=== PATIENT | male | born 2000 | race Caucasian/White ===

== ENCOUNTER 2018-07-17 16:29 | Inpatient (IN) | payer OTHER ==
[~2018-07-17] VITALS: Ht 180.3 cm; Wt 81.6 kg
--- NOTE | 2018-07-17 17:47 | NUR ---
Preadmission Note Pt is a 18 y/o male being admitted to [facility] for ETOH withdrawals. Pt reports drinking about 2-3 40 ounces of beer daily on the weekdays and 750ml of [place] (bourbon) daily on the weekends, Pt states that it has been a daily thing for the past 8 months. Pt appears worried and anxious. Pt stated that he last drank on the plane around 3pm. initial vitals as followed BP:128/77mmHg Pulse: 89 RR:18 Temp 98.4 pt denies any pain. Pt denies having any PMH, pt did not bring any home medications, pt stated that his longest period of sobriety was 2 weeks which was 5-6 months ago. pt has not been to any previous treatments prior to this one. will continue to monitor.
[2018-07-17 17:49] LABS: *AMPHETAMINE, URINE NEGATIVE (NEGATIVE); *BARBITURATE, URINE NEGATIVE (NEGATIVE); *CANNABINOID, URINE POSITIVE (NEGATIVE); *COCCAINE, URINE POSITIVE (NEGATIVE); *OPIATE, URINE NEGATIVE (NEGATIVE); *PHENCYCLIDINE SCREEN,URINE NEGATIVE (NEGATIVE)
[2018-07-17] MEDS ORDERED: MAGNESIUM HYDROXIDE 30 ML LIQUID UDC PO PRN (18:15)
[2018-07-17] MEDS ORDERED: diphenhydrAMINE 50 MG CAPSULE PO PRN (18:15)
[2018-07-17] MEDS ORDERED: ONDANSETRON 4 MG/2 ML VIAL IM PRN (18:15)
[2018-07-17] MEDS ORDERED: ONDANSETRON ODT 4 MG TAB.RAPDIS SL PRN (18:15)
[2018-07-17] MEDS ORDERED: THIAMINE HCL 200 MG/2 ML VIAL IM ONE (18:15)
[2018-07-17] MEDS ORDERED: CLONIDINE HCL 0.1 MG TABLET PO PRN (18:15)
[2018-07-17] MEDS ORDERED: HYDROXYZINE PAMOATE 25 MG CAPSULE PO PRN (18:15)
[2018-07-17] MEDS ORDERED: LOPERAMIDE HCL 2 MG CAPSULE PO PRN ×2 (18:15)
[2018-07-17] MEDS ORDERED: LORAZEPAM 1 MG TABLET PO PRN ×2 (18:15)
[2018-07-17] MEDS ORDERED: LORAZEPAM 2 MG/1 ML VIAL IM PRN (18:15)
[2018-07-17 18:23] LABS: BASOPHILS # (AUTO) 0.1 K/uL (0.0-8.0); BASOPHILS % (AUTO) 0.6 % (0.0-2.0); EOSINOPHILS # (AUTO) 0.2 K/uL (0.0-0.7); EOSINOPHILS % (AUTO) 1.4 % (0.0-7.0); HEMATOCRIT 43.9 % (36.7-47.1); HEMOGLOBIN 15.2 g/dL (12.5-16.3); LYMPHOCYTES # (AUTO) 4.4 K/uL (20.0-40.0); LYMPHOCYTES % (AUTO) 32.1 % (20.5-74.5); MEAN CORPUSCULAR HEMOGLOBIN 31.7 uug (23.8-33.4); MEAN CORPUSCULAR HGB CONC 35 g/dL (32.5-36.3); MEAN CORPUSCULAR VOLUME 91.6 fL (73.0-96.2); MONOCYTES # (AUTO) 1.1 K/uL (2.0-10.0); MONOCYTES % (AUTO) 8.3 % (0-11); NEUTROPHILS # (AUTO) 7.8 K/uL (1.8-8.9); NEUTROPHILS % (AUTO) 57.6 % (31.5-64.5); PLATELET COUNT (AUTO) 327 K/uL (152-348); RED BLOOD CELL COUNT(AUTO) 4.79 MIL/uL (4.06-5.63); WHITE BLOOD COUNT (AUTO) 13.6 K/uL (3.6-10.2)
--- NOTE | 2018-07-17 18:49 | NUR ---
Admission note Pt is a 18 y/o male being admitted to [facility] for ETOH withdrawals. Pt appears to be nervous and worried, he is well groomed a good historian and is mildly intoxicated. Pt is 5"11 and weighs 180lb. Pt reports drinking about 2-3 40oz of beer daily on the weekdays and 750ml of [place] (bourbon) daily on the weekends, Pt states that it has been a daily thing for the past 8 months. Pt appears worried and anxious. Pt stated that he last drank on the plane around 3pm. initial vitals as followed BP:128/77mmHg Pulse: 89 RR:18 Temp 98.4 pt denies any pain. Pt denies having any PMH, pt did not bring any home medications, pt stated that his longest period of sobriety was 2 weeks which was 5-6 months ago. pt has not been to any previous treatments prior to this one. 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 When asked what his triggers are to drink pt states "Stress, My family has a long history of abuse, my mother was a heroin addict, my grandparents drank a lot" Pt states that his father was never around and often his drinking is due to his father returning after years of not contacting him and trying to be there for him "He did care about us then we dont need him now" Pt states that he gets very agitated when he does not drink and that everything begins to irritate him. "I get mad at little things with my family and when I drink I start to think and realize that I should have been more in control and not get upset over little things". Pt states that he smokes about a pack of cigarettes a day. Pts initial CIWA score was a 9, Pts skin is intact with no s/s of any bruising or wounds noted. When asked why he decided to get sober he stated that he is doing it for his little sisters " I want to show them that there is still hope for me and for them, I want to be a better influence to them than my parents were to me, I'm doing this for them as much as I'm doing it for me". When asked what caused him to relapse in the past pt stated that his friends and family stressors were the main influences. "I would have a rough day get into an argument with my mother or my father would return again, I would leave the house and go hang out with my friends, one thing lead to another and before I knew it we were drinking" pt states that drinking allows him to forget about all of his problems " It puts all my problems in the back of my head where I dont think about them or worry at all and that feeling is something I really need in those situations". Some of the consequences that pt had to deal with due to drinking is having his sulky driver's license taken away from him "I didnt get a DUI but when they caught me drinking underage so many times they took away my driving license" Pt has to go through many classes and rehabs before they will even consider giving him back his license. Pt stated that he has never tried to his full potential to stop drinking , when asked what will be different about this time pt stated "The fact that I'm here, I never been to any detox but I feel as if I really want to move forward with my life I need to seek help" Substance use history: ETOH ([place])- Pt stated that he first drank when he was 13 years old, currently pt drinks about 2-3 40oz of beer daily on the weekdays and 750ml of [place] (bourbon) daily on the weekends, Pt states that it has been a daily thing for the past 8 months. His last time drinking was on the plane over here pt states he drank about 2 cups of [place] on the plane. Treatment history Pt denies any treatment history this is his first time in a detox. All information shared with Primary MD plan of care started pt is placed on a 5 day Ativan taper, Educated pt with unit rules and oriented pt around the unit. Encouraged pt to increase fluids as tolerated to help with detox process. Pt verbalized understanding . Safety measures in place call light within reach will continue to monitor.
[2018-07-17 18:50] LABS: ALANINE AMINOTRANSFERASE 22 U/L (16-63); ALKALINE PHOSPHATASE 98 U/L (50-136); AMYLASE 54 U/L (25-115); ASPARTATE AMINOTRANSFERASE 14 U/L (15-37); BILIRUBIN,TOTAL 0.5 mg/dL (0.2-1.0); CARBON DIOXIDE 26 mmol/L (21-32); CHLORIDE 104 mmol/L (98-107); CREATININE 0.9 mg/dL (0.6-1.3); GLUCOSE 88 mg/dL (74-106); LIPASE 121 U/L (73-393); MAGNESIUM 2.1 mg/dL (1.8-2.4); POTASSIUM 3.5 mmol/L (3.5-5.1); TOTAL PROTEIN, SERUM 7.8 g/dL (6.4-8.2); UREA NITROGEN, BLOOD 7 mg/dL (7-18)
[2018-07-17 18:59] LABS: ETHANOL < 3 MG/DL (0-0)
--- NOTE | 2018-07-17 19:14 | NUR ---
Start of shift note Received report from day shift nurse. Pt is a 18 yo male, A+Ox4, presenting to [facility] for medically supervised ETOH withdrawal. Pt noted with fatigues, anxiety, and agitation. Pt has HX of depression and anxiety which will be monitored during shift. Pt is on PRN medications and on 5 day Ativan taper to start tomorrow. Respirations even and unlabored. Will continue to monitor.
[2018-07-17 19:16] LABS: THYROID STIMULATING HORMONE 3.884 mIU/mL (0.358-3.740)
--- NOTE | 2018-07-17 20:14 | NUR ---
CIWA Assessment CIWA: 6. Pt noted with fine tremors, sweat on brow, anxiety, and agitation. Respirations even and unlabored. Will continue to monitor.
[2018-07-17 20:26] VITALS: BP 125/56
--- NOTE | 2018-07-18 00:48 | NUR ---
V/S refused and CIWA Assessment deferred for sleep. Respirations even and unlabored. Will continue to monitor.
--- NOTE | 2018-07-18 04:09 | NUR ---
V/S refused and CIWA Assessment deferred for sleep. Respirations even and unlabored. Will continue to monitor.
--- NOTE | 2018-07-18 07:00 | NUR ---
End of shift note Pt was continuously noted with fatigue, agitation, and anxiety. Pt remained in room for entire shift. Pt remained compliant and cooperative with all aspects of treatment. Pt was not given any PRN medications during shift. Pt is on 5 day Ativan taper to start today. Pt slept for a total of 9 HRS. Last CIWA: 6 @2013. Respirations even and unlabored. Will endorse to day shift nurse.
[2018-07-18 08:00] VITALS: BP 126/70
--- NOTE | 2018-07-18 08:00 | NUR ---
Start of Shift Notes: Patient endorsement received from night nurse. Patient is a 18 year old male admitted during the night for ETOH withdrawal who was placed on a 5-day Ativan taper as ordered. Patient's taper will be starting today. This is patient's first time in treatment. Last CIWA 6 and slept for a total of 9 hours. Received patient in his room, sitting on the chair. He is noted to be restless on BLE, sweaty palms, worried facial expression, appears disheveled, and complains of high anxiety. He is alert and oriented x 4. Denies S/I or H/I noted. No AV hallucinations noted. He is noted with visible tremors to BUE. Complains of abdominal cramping, hot flashes, nausea and migraine headache of 6/10. CIWA 25 upon assessment. Educated patient on his current plan of care for the day and his medication regimen. Patient appears overly worried on the s/s of withdrawal and requires further education on the s/s of ETOH withdrawal. Encouraged patient to increase oral fluid intake and encouraged participation during group to learn new skills to prevent relapse. All needs met and attended. Will continue to monitor closely.
[2018-07-18] MEDS: MULTIVITAMINS,THERAPEUTIC TABLET PO SCH (08:38)
[2018-07-18] MEDS: FOLIC ACID 1 MG TABLET PO SCH (08:38)
[2018-07-18] MEDS: DICYCLOMINE HCL 20 MG TABLET PO PRN (08:38)
[2018-07-18] MEDS: LORAZEPAM 1 MG TABLET PO SCH ×4 (08:38→20:33)
[2018-07-18] MEDS: THIAMINE HCL 100 MG TABLET PO SCH (08:38)
[2018-07-18] MEDS: IBUPROFEN 600 MG TABLET PO PRN (08:38)
--- NOTE | 2018-07-18 08:38 | NUR ---
Motrin 600 mg/Clonidine 0.1mg/Bentyl 20 mg/Zofran 4 mg SL given: Patient complains of 6/10 migraine headache, nausea, abdominal cramping, anxiety, and hot flashes. Patient with facial flushing noted. Medicated patient with Motrin 600 mg PO, Clonidine 0.1mg PO, Bentyl 20 mg and Zofran 4 mg SL as ordered. Will monitor for effectiveness.
[2018-07-18] MEDS ORDERED: 3 DAY TAPER OF LORAZEPAM -SERENITY PROTOCOL PO PRN (09:00)
[2018-07-18] MEDS ORDERED: TUBERCULIN,PURIF.PROT.DERIV. 5 TU/0.1 ML TEST ID ONE (09:00)
--- NOTE | 2018-07-18 09:38 | NUR ---
Re-assessment: Motrin, ClonidineHeather Zofran Patient verbalized that his migraine headache is now a 3/10, relief noted from nausea, abdominal cramping and less anxiety noted. Rest and relaxation encouraged. PRNs were effective.
--- NOTE | 2018-07-18 11:22 | NUR ---
UDS Result: Patient's UDS result also returned (+) for cocaine. Upon patient interview, patient reported using 1/2 gram of cocaine QD 5x/wk x [address] Singleton. Last use was on 07/17/2018, 1/2 gram.
[2018-07-18 12:00] VITALS: BP 113/60
--- NOTE | 2018-07-18 12:00 | NUR ---
CIWA Assessment: CIWA 20, patient continues to present with s/s of withdrawal m/b diaphoresis, facial flushing, nausea, gross tremors, anxiety, difficulty concentrating, fatigue, body aches, malaise, fatigue, anhedonia and excessive worrying. Will medicate patient as ordered per tapered order and provide support. Will continue to monitor closely.
--- NOTE | 2018-07-18 12:20 | NUR ---
Therapist prompted client to attend group therapy.
[2018-07-18] MEDS: METHOCARBAMOL 750 MG TABLET PO PRN (12:30)
--- NOTE | 2018-07-18 12:30 | NUR ---
Robaxin 750 mg PO given: Patient complained of 6/10 body aches. Orders obtained for Robaxin 750 mg PO. Medicated patient with Robaxin 750 mg PO as ordered. Non-pharmacological interventions provided but ineffective. Medicated patient with Robaxin 750 mg PO as ordered. Will monitor for effectiveness.
--- NOTE | 2018-07-18 13:30 | NUR ---
Re-assessment: Robaxin Patient verbalizes that his PL is now a 3/10. Rest encouraged. PRN Robaxin effective.
[2018-07-18 16:00] VITALS: BP 120/87
--- NOTE | 2018-07-18 16:12 | NUR ---
CIWA Assessment: CIWA 14, patient continues to present with s/s of ETOH withdrawal m/b anxiety, agitation, fatigue, restlessness, facial flushing, gross tremors, and diaphoresis and feeling of hot and cold as well as generalized discomfort. Will continue to medicate patient as ordered. Unable to participate in group and activities.
--- NOTE | 2018-07-18 19:12 | NUR ---
End of Shift Notes: Patient continues to be on 5-day Ativan taper as ordered. No adverse reactions noted. This is patients first day of taper. VS monitored closely. No significant abnormalities noted. Withdrawal symptoms were closely monitored. Initial CIWA 25, patient continues to present with gross tremors, diaphoresis, anxiety, agitation, myalgia, paresthesia, nausea, headache, abdominal cramping, chills, malaise, fatigue and generalized discomfort. Last CIWA 14. Patient was medicated with Motrin, Clonidine, Bentyl and Zofran as ordered at 0838 and Robaxin at 1230. He verbalizes that Ativan has been effective in reducing his withdrawal symptoms. Patient requires constant redirection and education throughout the day due to fear of withdrawal symptoms and further education on the s/s of withdrawal. Unable to participate in group and activities due to his withdrawal symptoms. All needs met and attended. Will continue to monitor closely.
--- NOTE | 2018-07-18 19:14 | NUR ---
Start of shift note Received report from day shift nurse. Pt is a 18 yo male, A+Ox4, presenting to [facility] for medically supervised ETOH withdrawal. Pt was also using Cocaine. Pt noted with restlessness, agitation, anxiety, and flat affect. Pt has HX of anxiety and depression which will be monitored during shift. Pt is on 3 day Ativan taper, tolerated well. Respirations even and unlabored. Will continue to monitor.
[2018-07-18 20:12] VITALS: BP 127/77
--- NOTE | 2018-07-18 20:12 | NUR ---
CIWA Assessment CIWA: 11. Pt noted with fine tremors, sweat on brow, anxiety, agitation, and itchiness. Respirations even and unlabored. Will continue to monitor.
--- NOTE | 2018-07-19 00:55 | NUR ---
V/S refused and CIWA Assessment deferred for sleep. Respirations even and unlabored. Will continue to monitor.
--- NOTE | 2018-07-19 04:40 | NUR ---
V/S refused and CIWA Assessment deferred for sleep. Respirations even and unlabored. Will continue to monitor.
--- NOTE | 2018-07-19 07:00 | NUR ---
End of shift note Pt was continuously noted with restlessness, agitation, and anxiety. Pt remained in room for majority of shift except to go smoke on smoking patio, to attend group therapy, and to get food from kitchen. Pt remained cooperative and compliant with all aspects of treatment. Pt was not given any PRN medications during shift. Pt remains on 3 day Ativan taper, tolerated well. Pt slept for a total of 7 HRS. Last CIWA: 11 @2011. Respirations even and unlabored. Will endorse to day shift nurse.
[2018-07-19 08:00] VITALS: BP 129/67
--- NOTE | 2018-07-19 08:00 | NUR ---
Start of Shift Notes: Patient endorsement received from night nurse. Patient is a 18 year old male admitted during the night for ETOH withdrawal who was placed on a 3-day Ativan taper as ordered. Per night report, patient was given no PRNs. Last CIWA 11 and slept for a total of 7 hours. Received patient in his room, sitting on the chair. Awake, alert and oriented x 4. He is noted with flat affect, poor eye contact, sweaty palms, worried facial expression, appears disheveled, and complains of high anxiety. Denies S/I or H/I noted. No AV hallucinations noted. He is noted with visible tremors to BUE. Complains of hot flashes, nausea and migraine headache and body aches of 6/10. CIWA 15 upon assessment. Educated patient on his current plan of care for the day and his medication regimen. Patient appears overly worried on the s/s of withdrawal and requires further education on the s/s of ETOH withdrawal. Encouraged patient to increase oral fluid intake and encouraged participation during group to learn new skills to prevent relapse. All needs met and attended. Will continue to monitor closely. Addendum: 07/19/18 at 1428 by NAOMI EASON LVN Start of Shift Notes/CIWA Assessment
[2018-07-19] MEDS: THIAMINE HCL 100 MG TABLET PO SCH (08:39)
[2018-07-19] MEDS: IBUPROFEN 600 MG TABLET PO PRN (08:39)
[2018-07-19] MEDS: MULTIVITAMINS,THERAPEUTIC TABLET PO SCH (08:39)
[2018-07-19] MEDS: LORAZEPAM 1 MG TABLET PO SCH ×3 (08:39→22:35)
[2018-07-19] MEDS: FOLIC ACID 1 MG TABLET PO SCH (08:39)
[2018-07-19] MEDS: METHOCARBAMOL 750 MG TABLET PO PRN (08:43)
--- NOTE | 2018-07-19 08:43 | NUR ---
Motrin 600 mg PO/Robaxin 750 mg PO given: PRN Motrin and Robaxin given for complain of 6/10 migraine and body aches unrelieved with nonpharmacological interventions. Will monitor for effectiveness.
--- NOTE | 2018-07-19 09:43 | NUR ---
Re-assessment: Motrin and Robaxin Patient verbalizes relief from migraine headache and body aches. He reports her PL is now a 12/22. PRN Motrin and Robaxin were effective.
[2018-07-19 12:00] VITALS: BP 123/81
--- NOTE | 2018-07-19 12:01 | NUR ---
Therapist prompted client to attend group therapy.
--- NOTE | 2018-07-19 12:30 | NUR ---
CIWA Assessment: CIWA 13, patient continues to present with s/s of withdrawal related to ETOH m/b increased anxiety, agitation, gross tremors, intermittent perspiration, paresthesia, malaise, fatigue and generalized discomfort. Will medicate patient as ordered.
[2018-07-19 13:07] LABS: HEPATITIS B SURFACE AG Negative (Negative)
[2018-07-19 16:00] VITALS: BP 116/71
--- NOTE | 2018-07-19 16:13 | NUR ---
CIWA Assessment: CIWA 13, patient presents with increased anxiety, agitation, difficulty concentrating, intermittent perspiration, facial flushing, fatigue and generalized discomfort. Offered PRNs. Support provided. Will continue to monitor.
--- NOTE | 2018-07-19 19:05 | NUR ---
End of Shift Notes: Patient continues to be on 5-day Ativan taper as ordered. No adverse reactions noted. This is patients 2nd day of taper. VS monitored closely. No significant abnormalities noted. Withdrawal symptoms were closely monitored. Initial CIWA 15, patient presented with gross tremors, diaphoresis, anxiety, agitation, myalgia, , headache, chills, malaise, fatigue and generalized discomfort. Last CIWA 13. Patient was medicated with Motrin, and Robaxin at 0843 with help. He verbalizes that Ativan has been effective in reducing his withdrawal symptoms. Patient requires constant redirection and education throughout the day due to fear of withdrawal symptoms and further education on the s/s of withdrawal. He was able to participate in group and activities despite his withdrawal symptoms. All needs met and attended. Will continue to monitor closely.
--- NOTE | 2018-07-19 19:10 | NUR ---
Start of shift note Received report from day shift nurse. Pt is a 18 yo male, A+Ox4, presenting o [facility] for medically supervised ETOH withdrawal. Pt was also using Cocaine. Pt noted with restlessness, agitation, and anxiety. Pt has HX of anxiety and depression which will be monitored during shift. Pt continues on 3 day Ativan taper, tolerated well. Respirations even and unlabored. Will continue to monitor.
[2018-07-19 20:54] VITALS: BP 104/53
--- NOTE | 2018-07-19 20:55 | NUR ---
CIWA Assessment CIWA: 10. Pt noted with fine tremors, sweat on brow, anxiety, and agitation. Respirations even and unlabored. Will continue to monitor.
[2018-07-19] MEDS: TRAZODONE 50 MG TABLET PO PRN (22:41)
--- NOTE | 2018-07-19 22:41 | NUR ---
PRN Trazodone Pt c/o inability to sleep. PRN Trazodone given and tolerated well. Will reassess within 1 HR. Will continue to monitor.
--- NOTE | 2018-07-19 23:40 | NUR ---
PRN Trazodone Reassessment Medication effective. Pt is resting well in bed. No s/s of ASE noted at this time. Respirations even and unlabored. Will continue to monitor.
--- NOTE | 2018-07-20 00:55 | NUR ---
V/S refused and CIWA Assessment deferred for sleep. Respirations even and unlabored. Will continue to monitor.
--- NOTE | 2018-07-20 04:45 | NUR ---
V/S refused and CIWA Assessment deferred for sleep. Respirations even and unlabored. Will continue to monitor.
--- NOTE | 2018-07-20 06:59 | NUR ---
End of shift note Pt was continuously noted with anxiety, agitation, and restlessness. Pt remained in room for majority of shift except to get food from kitchen and to go smoke on smoking patio. Pt remained compliant and cooperative with all aspects of treatment. Pt was given PRN Trazodone @2241. Pt remains on 3 day Ativan taper, tolerated well. Pt slept for a total of 8 HRS. Last CIWA: 10 @2054. Respirations even and unlabored. Will endorse to day shift nurse.
[2018-07-20 08:00] VITALS: BP 122/70
--- NOTE | 2018-07-20 08:05 | NUR ---
START OF SHIFT: Received Pt A/O x 4. he presents with blunted affect and subdued mood. He denies S/I and H/I. He reports fatigue,and irritability and some night sweats.He is disheveled. Modified Ativan taper in progress to manage s/s of w/d. CIWA 9. Encouraged group attendance to improve coping skills and prevent relapse. Encouraged increased fluids to assist in facilitating detox process.
[2018-07-20] MEDS: FOLIC ACID 1 MG TABLET PO SCH (08:26)
[2018-07-20] MEDS: LORAZEPAM 1 MG TABLET PO SCH ×2 (08:26→20:45)
[2018-07-20] MEDS: THIAMINE HCL 100 MG TABLET PO SCH (08:26)
[2018-07-20] MEDS: MULTIVITAMINS,THERAPEUTIC TABLET PO SCH (08:27)
[2018-07-20] MEDS: DICYCLOMINE HCL 20 MG TABLET PO PRN (10:57)
[2018-07-20] MEDS: METHOCARBAMOL 750 MG TABLET PO PRN (10:57)
[2018-07-20] MEDS: IBUPROFEN 600 MG TABLET PO PRN (10:57)
--- NOTE | 2018-07-20 11:00 | NUR ---
Pt C/O L upper abdomen pain that radiates to L arm. He reports 8/10 on pain scale. PRN Motrin,Robaxin and Bentyl given to manage pain. MD made aware. MD ordered stat EKG. Will monitor effectiveness of PRN medication.
[2018-07-20 12:00] VITALS: BP 145/69
--- NOTE | 2018-07-20 12:07 | NUR ---
CIWA 9 He reports anxiety,restlessness ,irritability and fatigue.
--- NOTE | 2018-07-20 12:59 | NUR ---
PRN Linda,Pat and Bentyl effective. Pt states pain 5/10 on scale. EKG done. NSR. He states he cracked a rib on the left side a couple of weeks ago and states he thinks the pain stems from that. Will continue to monitor and offer support.
[2018-07-20] MEDS: LIDOCAINE 5% PATCH TD SCH (13:58)
[2018-07-20 16:00] VITALS: BP 132/71
[2018-07-20 16:45] LABS: BASOPHILS % (AUTO) 0.4 % (0.0-2.0); EOSINOPHILS # (AUTO) 0.1 K/uL (0.0-0.7); EOSINOPHILS % (AUTO) 1.1 % (0.0-7.0); HEMATOCRIT 44.5 % (36.7-47.1); HEMOGLOBIN 15.6 g/dL (12.5-16.3); LYMPHOCYTES # (AUTO) 3.6 K/uL (20.0-40.0); LYMPHOCYTES % (AUTO) 30.4 % (20.5-74.5); MEAN CORPUSCULAR HEMOGLOBIN 32.1 uug (23.8-33.4); MEAN CORPUSCULAR HGB CONC 35 g/dL (32.5-36.3); MEAN CORPUSCULAR VOLUME 91.6 fL (73.0-96.2); MONOCYTES % (AUTO) 8.2 % (0-11); NEUTROPHILS # (AUTO) 7.2 K/uL (1.8-8.9); NEUTROPHILS % (AUTO) 59.9 % (31.5-64.5); PLATELET COUNT (AUTO) 311 K/uL (152-348); RED BLOOD CELL COUNT(AUTO) 4.86 MIL/uL (4.06-5.63)
[2018-07-20 17:20] LABS: BILIRUBIN,TOTAL 0.4 mg/dL (0.2-1.0); CREATININE 1.1 mg/dL (0.6-1.3); POTASSIUM 4.1 mmol/L (3.5-5.1)
--- NOTE | 2018-07-20 18:47 | NUR ---
END OF SHIFT: Pt continues on Ativan taper to manage s/s of w/d which include anxiety,restlessness,fatigue and irritability. Last CIWA 8.He c/o L upper abdomen pain earlier in shift and Motrin ,Robaxin and Bentyl given PRN and effective. He reports he cracked L rib a couple of weeks ago. Lidocaine patch applied per MD. He was excused from one group today. Will pass shift report to oncoming night nurse.
[2018-07-20 20:00] VITALS: BP 116/69
--- NOTE | 2018-07-20 20:00 | NUR ---
Start of Shift Patient noted to have lack of interest in interaction and appears anxious and with flat affect. Patient verbalized "feeling tired" and with "no energy". Patient with hypoactive body movement. Patient also noted to be disheveled, is unkempt and with dirty fingernails. Last dose of the Ativan taper to be given tonight. Fall, universal, seizure and safety prec in place. Call light within reach. Latest CIWA=7. Will continue to monitor.
[2018-07-21] VITALS: BP 119/70
--- NOTE | 2018-07-21 | NUR ---
CIWA=7 Patient is intermittently anxious, continues to be disheveled and with hypoactive body movement. Patient is melancholic and with flat affect.
[2018-07-21 04:00] VITALS: BP 114/68
--- NOTE | 2018-07-21 04:00 | NUR ---
CIWA=6 Patient continues to be melancholic and isolative. Patient c/o intermittent anxiety and nausea. Refused PRN meds at this time.
--- NOTE | 2018-07-21 07:28 | NUR ---
End of Shift Patient continues to have flat affect and is isolative and avoidant with conversation. Patient noted to have hypoactive body movement, anxiety and is depressed. Encouraged patient to take a shower today as he continues to be disheveled and unkempt. Fall, universal, seizure and safety prec in place. Call light within reach. Latest CIWA=6, slept for 11 hours. Endorsed to AM shift nurse for continuity of care.
--- NOTE | 2018-07-21 07:30 | NUR ---
Start Of Shift Patient is a 18 yr old male who was admitted to [facility] on 07/17/18 for a medically supervised withdrawal from ETOH (Beer and [place]) he has completed a 3 day Ativan taper and has PRN medications available. No PRN medications were requested or required on PM shift and he slept for 7 hours and last CIWA was 6. He is awake in his room at this time and voices that he has left side rib pain due to broken ribs, PRN medication will be brought. Continue to follow MD plan of care and offer support and encouragement as needed.
[2018-07-21 08:00] VITALS: BP 135/77
--- NOTE | 2018-07-21 08:00 | NUR ---
CIWA 8 Patient presents with increased anxiety, restlessness, rib pain and irritability Motrin and Robaxin will be given for pain
[2018-07-21] MEDS: LIDOCAINE 5% PATCH TD SCH (08:15)
[2018-07-21] MEDS: FOLIC ACID 1 MG TABLET PO SCH (08:15)
[2018-07-21] MEDS: IBUPROFEN 600 MG TABLET PO PRN ×2 (08:15→16:32)
[2018-07-21] MEDS: THIAMINE HCL 100 MG TABLET PO SCH (08:15)
[2018-07-21] MEDS: MULTIVITAMINS,THERAPEUTIC TABLET PO SCH (08:15)
[2018-07-21] MEDS: METHOCARBAMOL 750 MG TABLET PO PRN ×2 (08:15→16:32)
--- NOTE | 2018-07-21 08:15 | NUR ---
PRN Motrin 600mg PO and Robaxin 750mg PO given for left side rib pain 6/10 Lidocaine patch applied over left rib area will reassess
--- NOTE | 2018-07-21 09:15 | NUR ---
PRN Reassess Patient states pain level is now 3/10 medications and patch effective
[2018-07-21 12:00] VITALS: BP 147/75
--- NOTE | 2018-07-21 12:00 | NUR ---
VETO 8 Patient presents with increased anxiety, restlessness, clammy skin and irritability
[2018-07-21] MEDS ORDERED: INFLUENZA VACCINE 2018-2019 0.5 ML DISP.SYRIN IM ONE (13:00)
--- NOTE | 2018-07-21 13:20 | NUR ---
Flu Vaccine given Right deltoid lot # [id number] Exp 04/13/2019
--- NOTE | 2018-07-21 13:47 | NUR ---
Therapist prompted client to attend all group therapy sessions.
[2018-07-21] MEDS ORDERED: CLON0.1T14 PO (15:21)
[2018-07-21] MEDS ORDERED: METH-406 PO (15:21)
[2018-07-21] MEDS ORDERED: LIDO30AD10 TD (15:21)
[2018-07-21] MEDS ORDERED: IBUP-1955 PO (15:21)
[2018-07-21] MEDS ORDERED: TRAZ-213 PO (15:21)
[2018-07-21 16:00] VITALS: BP 141/69
--- NOTE | 2018-07-21 16:19 | NUR ---
VETO 8 Patient presents with increased anxiety, restlessness, clammy skin and irritability
--- NOTE | 2018-07-21 16:30 | NUR ---
PRN Robaxin 750mg PO and Motrin 600mg PO given for right rib pain 03/24
--- NOTE | 2018-07-21 17:30 | NUR ---
PRN Reassess Medications effective Robaxin and Motrin reduced pain level to 3/10
--- NOTE | 2018-07-21 19:34 | NUR ---
End Of Shift Patient is a 18 yr old male who was admitted to [facility] on 07/17/18 for a medically supervised withdrawal from ETOH (Beer and [place]) he has completed a 3 day Ativan taper and has PRN medications available. PRN medications given on this shift : Motrin x2 and Robaxinx2 for rib pain. Influenza vaccine was given today. Last CIWA was 8@ 1600. His withdrawal symptoms include restlessness, irritability and anxiety. He had a fluid intake of 2000ml, 6 voids and 1 BM. Continue to follow MD plan of care and offer support and encouragement as needed. Endorsed to material handler 2nd shift.
[2018-07-21 20:00] VITALS: BP 143/84
--- NOTE | 2018-07-21 20:00 | NUR ---
Start of Shift Pt is a 18 year old male admitted for ETOH, placed on a 3 day Ativan taper. Pt completed taper and is scheduled for discharge tomorrow morning, 07/22/2018. Upon assessment, Pt presents in room, is alert & oriented x4. Pt reports feeling anxious with restlessness. Pt reports he usually has pain on his left side due to broken left rib, however he reports his pain is 2/10 at time of assessment due to pain medication administered earlier. VETO 8. Safety measures in place, will continue to monitor.
--- NOTE | 2018-07-21 20:50 | NUR ---
PRN Trazodone Administration Pt requested sleeping aid. Trazodone 50mg PRN administered. Will continue to monitor.
[2018-07-21] MEDS: TRAZODONE 50 MG TABLET PO PRN (20:58)
--- NOTE | 2018-07-21 21:50 | NUR ---
PRN Reassessment Upon reassessment, pt is sleeping with eyes closed, respirations even/unlabored. Safety measures in place, will continue to monitor.
--- NOTE | 2018-07-22 | NUR ---
COWS/CIWA Deferred COWS/CIWA deferred d/t pt sleeping - to assess while pt is awake as ordered. Pt refused to be woken up for VS assessment Safety measures in place, will continue to monitor. Addendum: 07/22/18 at 0454 by NASH VELASQUEZ RN VETO meier
--- NOTE | 2018-07-22 04:00 | NUR ---
CIWA Deferred CIWA deferred d/t pt sleeping - to assess while pt is awake as ordered. Pt refused to be woken up for VS assessment Safety measures in place, will continue to monitor.
--- NOTE | 2018-07-22 07:10 | NUR ---
End of Shift Pt is a 18 year old male admitted for ETOH, placed on a 3 day Ativan taper. Pt completed taper and is scheduled for discharge today morning, 07/22/2018. During shift, Pt presented in room, alert & oriented x4. Pt reported feeling anxious with restlessness. Pt reported he usually has pain on his left side due to broken left rib. CIWA 8. Trazodone 50mg PRN administered for sleep. PT slept for 8 hours, intake of 791ml PO and void x3. Safety measures in place, endorsed to day shift nurse.
--- NOTE | 2018-07-22 07:45 | NUR ---
START OF SHIFT Pt is a 18 yr old male, AA&OX4. Pt was admitted on 07/17/18 for ETOH withdrawal and has completed a 3 day Ativan taper as ordered. Received report from manager shift nurse. Pt received trazodone PRN during the night for sleep. Medication was effective and slept for 8 hrs. Last CIWA score was 8. Pt is to be discharged today. Pt was c/o anxiety due to discharged. Skin is intact, warm and moist to touch. Will continue to f/u with discharged. Safety precautions observed. Call light is within reach. Will continue to monitor.
[2018-07-22 08:00] VITALS: BP 117/72
[2018-07-22] MEDS: LIDOCAINE 5% PATCH TD SCH (09:03)
[2018-07-22] MEDS: THIAMINE HCL 100 MG TABLET PO SCH (09:03)
[2018-07-22] MEDS: MULTIVITAMINS,THERAPEUTIC TABLET PO SCH (09:03)
[2018-07-22] MEDS: FOLIC ACID 1 MG TABLET PO SCH (09:03)
--- NOTE | 2018-07-22 09:40 | NUR ---
DISCHARGE NOTE Pt is a 18 yr old male, AA&OX4. Pt was admitted on 07/17/18 for ETOH withdrawal and has completed a 3 day Ativan taper as ordered. Pt has been cooperative with medication regimen and plan of care. Pt was c/o anxiety due to discharged but was able to cope with anxiety level. No SI/HI noted. Pt was educated on discharged summary and prescriptions. Pt was able to verbalize understanding. Pt was discharged off the unit at 0930 in stable condition. Pt was discharged to [facility]. Pt left with all belongings and valuables. No home medication was brought.
== END 2018-07-22 09:30 | DRG 895 ==
LOC: SRC 16:42
PROVIDERS: ADMIT Family Medicine Addiction Medicine; ATTEND Family Medicine Addiction Medicine
PROC: HZ2ZZZZ Detoxification Services for Substance Abuse Treatment (ICD-10-PCS; principal; 2018-07-17)
PROC: HZ31ZZZ Individual Counseling for Substance Abuse Treatment, Behavioral (ICD-10-PCS; 2018-07-18)
PROC: HZ41ZZZ Group Counseling for Substance Abuse Treatment, Behavioral (ICD-10-PCS; 2018-07-19)
DX: F10.230 Alcohol dependence with withdrawal, uncomplicated (principal); F13.230 Sedative, hypnotic or anxiolytic dependence with withdrawal, uncomplicated; F14.10 Cocaine abuse, uncomplicated; F17.210 Nicotine dependence, cigarettes, uncomplicated; Y90.0 Blood alcohol level of less than 20 mg/100 ml; Z81.1 Family history of alcohol abuse and dependence; Z81.3 Family history of other psychoactive substance abuse and dependence; Z81.8 Family history of other mental and behavioral disorders; G47.00 Insomnia, unspecified; F11.23 Opioid dependence with withdrawal; R94.6 Abnormal results of thyroid function studies; R07.89 Other chest pain
CPT/HCPCS: 36415; 70030-TC; 80307; 80349; 80353; 83690; 83735; 84443; 85025; 86580; 86592; 86705; 86803; 87340; 87806; 90686; 93005; G0480; Q0162